=== PATIENT | female | born 1990 | race Two or more races ===

== ENCOUNTER → 2019-11-28 | Outpatient (CLI) | payer SELFPAY | END | disposition home or self-care (01) | LOC: UNDOADMOB 11:10 → LDRP 11:10 → XYW 11:10 → EDSTATUS 13:30 | PROVIDERS: ATTEND Specialist | DX: Z34.92 Encounter for supervision of normal pregnancy, unspecified, second trimester (principal); Z3A.26 26 weeks gestation of pregnancy | CPT/HCPCS: 76805 ==